=== PATIENT | female | born 1960 | race Caucasian/White ===

== ENCOUNTER 2017-05-22 19:37 | Emergency (ER) | payer OTHER ==
[~2017-05-22] VITALS: Ht 160 cm; Wt 88.9 kg
[2017-05-22 19:47] VITALS: BP 141/80
--- NOTE | 2017-05-22 19:55 | NUR ---
TO LOBBY, AMB, V/S STABLE, A/W FOR BED, ERMD NOTED.
--- NOTE | 2017-05-22 22:18 | NUR ---
SOB, COUGH, RUNNYNOSE, NASAL CONGESTION, FOR A MONTH , SEEN BY PMD LAST 12.17 WITH PRESCRIPTION. PMH HTN, DM BL LUNG SOUNDS CLEAR THROUGH OUT. ABD IS SOFT, ROUND, NONTENDER.
[2017-05-22 22:50] VITALS: BP 139/76
--- NOTE | 2017-05-22 22:51 | NUR ---
Patient discharged with v/s stable. Written and verbal after care instructions given and explained. Patient alert, oriented and verbalized understanding of instructions. Ambulatory with steady gait. All questions addressed prior to discharge. ID band removed. Patient advised to follow up with PMD. Rx of CODEINE PHOSPHATE given. Patient educated on indication of medication including possible reaction and side effects. Opportunity to ask questions provided and answered.
== END 2017-05-22 22:51 | disposition home or self-care (01) ==
LOC: MED 19:37
DX: J06.9 Acute upper respiratory infection, unspecified (principal); R50.9 Fever, unspecified
CPT/HCPCS: 99284

== ENCOUNTER 2019-08-06 12:52 | Emergency (ER) | payer OTHER ==
[~2019-08-06] VITALS: Ht 157.5 cm; Wt 81.6 kg
[2019-08-06 13:26] VITALS: BP 153/71
--- NOTE | 2019-08-06 13:35 | NUR ---
58 Y/O FEMALE C/O RIGHT KNEE PAIN X 1 WEEK, ACHING PAIN 11/26. PT DENIES ANY TRAUMA. PT HAS ARTHRITIS IN KNEE. PT TOOK IBUPROFEN WITH MINIMAL TIEN RELIEF. DENIES N/V/D; SKIN IS PINK/WARM/DRY; AAOX4; UANBLE TO ASSESS AMBULATIN PT IN W/C; PT DENIES ANY FEVER, CP, SOB, OR COUGH AT THIS TIME; VSS; PATIENT POSITIONED FOR COMFORT; HOB ELEVATED; BEDRAILS UP X1; BED DOWN AND WHEELS LOCKED. MEDICAL HX:DIABETES/ARTHRITIS NKA
[2019-08-06] MEDS ORDERED: KETOROLAC 30 MG/ML VIAL IM ONE (13:45)
[2019-08-06] MEDS ORDERED: DEXAMETHASONE 10 MG/ML VIAL IM ONE (13:45)
--- NOTE | 2019-08-06 14:20 | NUR ---
PT SITTING IN POSITION OF COMFORT, BED LOW AND WHEELS LOCKED, 1 SIDERAIL UP,VSS,WILL CONTINUE TO MONITOR.
[2019-08-06 14:57] VITALS: BP 150/72
--- NOTE | 2019-08-06 14:57 | NUR ---
Patient discharged with v/s stable. Written and verbal after care instructions given and explained. Patient alert, oriented and verbalized understanding of instructions. Wheel Chair Assisted with to car. All questions addressed prior to discharge. ID band removed. Patient advised to follow up with PMD. Rx of NAPROXEN given. Patient educated on indication of medication including possible reaction and side effects. Opportunity to ask questions provided and answered.
== END 2019-08-06 14:57 | disposition home or self-care (01) ==
LOC: MED 12:52
DX: M25.561 Pain in right knee (principal); E11.9 Type 2 diabetes mellitus without complications; I10 Essential (primary) hypertension; Z87.39 Personal history of other diseases of the musculoskeletal system and connective tissue
CPT/HCPCS: 96372; 99284; J1100; J1885

== ENCOUNTER 2020-02-26 21:45 | Emergency (ER) | payer OTHER ==
[~2020-02-26] VITALS: Ht 157.5 cm; Wt 84.4 kg
[2020-02-26 21:48] VITALS: BP 185/75
--- NOTE | 2020-02-26 22:10 | NUR ---
RECEIVED IN BED 12 WITH C/O ELEVATED BP, DIZZINESS, AMD NAUSEA. IS AWAKE AMD ALERT. RSPIRATIONS ARE REGULAR AND UNLABORED. DENIES PAIN OR DISCOMFORT AT THIS TIME. ATTACHED TO COMMERCIAL BANKER = NSR. 18G SL ESTABLISHED RIGHT A/C, LABS DRAWN.
--- NOTE | 2020-02-26 22:15 | NUR ---
C/O UNCONTROLLED HTN , +DIZZINESS , +NAUSEA , + MATUTE X 2 DAYS. VSS. DENIES ANY HEAD TRUAMA OR INJURY. A&O X4. HEART SOUNDS S1S2 PRESENT. LUNG SOUNDS CLEAR ALL THROUGHOUT. STEADY GAIT. DENIES ANY BLURRY VISION. PMH: DM , HTN NKA
[2020-02-26 22:28] LABS: BASOPHILS # (AUTO) 0.1 K/uL (0.00-0.22); BASOPHILS % (AUTO) 0.9 % (0.0-2.0); EOSINOPHILS % (AUTO) 0.4 % (0.0-4.0); HEMATOCRIT 33.9 % (36-48); HEMOGLOBIN 11.5 g/dL (12.0-16.0); LYMPHOCYTES # (AUTO) 3.9 K/uL (2.5-16.5); LYMPHOCYTES % (AUTO) 32.2 % (20.5-51.1); MEAN CORPUSCULAR HEMOGLOBIN 28 pg (27-31); MEAN CORPUSCULAR HGB CONC 34 g/dL (33-37); MEAN CORPUSCULAR VOLUME 83.1 fL (80-94); MONOCYTES # (AUTO) 0.8 K/uL (0.8-1.0); MONOCYTES % (AUTO) 6.4 % (1.7-9.3); NEUTROPHILS # (AUTO) 7.3 K/uL (1.8-7.7); NEUTROPHILS % (AUTO) 60.1 % (42.2-75.2); PLATELET COUNT (AUTO) 262 K/uL (140-450); RED BLOOD CELL COUNT(AUTO) 4.08 MIL/uL (4.20-5.40); RED CELL DISTRIBUTION WIDTH 13.5 % (11.6-13.7); WHITE BLOOD COUNT (AUTO) 12.2 K/uL (4.8-10.8)
[2020-02-26 22:39] LABS: ANION GAP 13.8 (8-16); CARBON DIOXIDE 25.8 mmol/L (21-32); CREATININE 0.6 mg/dL (0.6-1.3); POTASSIUM 3.6 mmol/L (3.5-5.1)
[2020-02-26] MEDS ORDERED: NACL 3% 150 ML IV ONE (23:05)
--- NOTE | 2020-02-27 00:05 | NUR ---
PT LAYING IN BED COMFORTABLY. NO DISTRESS NOTED. PT STATES SHE FEELS BETTER. EQUAL CHEST RISE AND FALL.
--- NOTE | 2020-02-27 00:08 | NUR ---
LAB AT BEDSIDE.
--- NOTE | 2020-02-27 00:37 | NUR ---
URINE COLLECTED AND SENT TO LAB
[2020-02-27 00:50] LABS: ANION GAP 14.5 (8-16); CARBON DIOXIDE 25.8 mmol/L (21-32); CREATININE 0.7 mg/dL (0.6-1.3); POTASSIUM 4.3 mmol/L (3.5-5.1)
[2020-02-27 00:59] LABS: APPEARANCE,URINE CLEAR (CLEAR); BILIRUBIN,URINE NEGATIVE (NEGATIVE); BLOOD, URINE NEGATIVE (NEGATIVE); COLOR,URINE YELLOW (YELLOW); LEUKOCYTE ESTERASE ,URINE 1+ (NEGATIVE); NITRITE, URINE NEGATIVE (NEGATIVE); UGLUCOSE NEGATIVE (NEGATIVE)
[2020-02-27 01:25] VITALS: BP 103/64
--- NOTE | 2020-02-27 01:25 | NUR ---
Patient discharged with v/s stable. Written and verbal after care instructions given and explained. Patient alert, oriented and verbalized understanding of instructions. Ambulatory with steady gait. All questions addressed prior to discharge. ID band removed. Patient advised to follow up with PMD. Rx of losartan potassium given. Patient educated on indication of medication including possible reaction and side effects. Opportunity to ask questions provided and answered.
[2020-02-27 01:49] LABS: RBC,URINE 0-5 /HPF (0-5)
== END 2020-02-27 01:25 | disposition home or self-care (01) ==
LOC: MED 21:45
DX: E87.1 Hypo-osmolality and hyponatremia (principal); I10 Essential (primary) hypertension; E11.9 Type 2 diabetes mellitus without complications
CPT/HCPCS: 36415; 80048; 81001; 84300; 84484; 85025; 87086; 93005; 96360; 99291; J3490; 99281; 99284

== ENCOUNTER 2020-03-28 18:55 | Emergency (ER) | payer OTHER ==
[~2020-03-28] VITALS: Ht 157.5 cm; Wt 81.6 kg
[2020-03-28 19:11] VITALS: BP 171/92
--- NOTE | 2020-03-28 19:19 | NUR ---
To ED bed 09
--- NOTE | 2020-03-28 19:19 | NUR ---
pt amb to restroom to provide urine sample
--- NOTE | 2020-03-28 19:26 | NUR ---
ERMD AT BEDSIDE FOR MEDICAL EVALUATION.
[2020-03-28] MEDS ORDERED: NACL 0.9% 500 ML IV ONE (19:30)
[2020-03-28] MEDS ORDERED: ONDANSETRON 4 MG/2 ML VIAL IVP ONE (19:30)
--- NOTE | 2020-03-28 19:30 | NUR ---
59 Y/O FEMALE PRESENTED TO THE ED C/O 08/27 DIFFUSE ABD PAIN, ACCOMPANIED BY NAUSEA, BLOATING, AND CRAMPS, PT DENIES VOMITING, PT DENIES FEVER, PT HAS HYPERACTIVE BOWEL SOUNDS IN ALL 4 QUADRANTS. PT HAS TENDERNESS UPON PALPATION. PT DENIES TAKING MEDICATION FOR PAIN. PT STATES TAKING LOSARTAN. METOPROLOL, METFORMIN, AND ASA. PT LYING DOWN IN BED, BED IS LOCKED AND IN LOWEST POSITION. SIDE RAILS X1, PT CONNECTED TO LOAN CLERK, PT IS NOT IN ANY ACUTE DISTRESS AT THIS TIME. PMH: HTN, DM, AND HYPONATREMIA NKA
--- NOTE | 2020-03-28 20:30 | NUR ---
LAB AT BEDSIDE.
--- NOTE | 2020-03-28 20:40 | NUR ---
LEENA LISA COLLECTED AND HANDED OVER TO LAB WHILE THEY WERE ON THE UNIT.
[2020-03-28 20:50] LABS: BASOPHILS % (AUTO) 0.4 % (0.0-2.0); EOSINOPHILS % (AUTO) 0.5 % (0.0-4.0); HEMATOCRIT 33.6 % (36-48); HEMOGLOBIN 11.2 g/dL (12.0-16.0); LYMPHOCYTES # (AUTO) 2.4 K/uL (2.5-16.5); LYMPHOCYTES % (AUTO) 23.6 % (20.5-51.1); MEAN CORPUSCULAR HEMOGLOBIN 28 pg (27-31); MEAN CORPUSCULAR HGB CONC 33 g/dL (33-37); MEAN CORPUSCULAR VOLUME 84.7 fL (80-94); MONOCYTES # (AUTO) 0.6 K/uL (0.8-1.0); MONOCYTES % (AUTO) 6.2 % (1.7-9.3); NEUTROPHILS % (AUTO) 69.3 % (42.2-75.2); PLATELET COUNT (AUTO) 224 K/uL (140-450); RED BLOOD CELL COUNT(AUTO) 3.97 MIL/uL (4.20-5.40); RED CELL DISTRIBUTION WIDTH 13.7 % (11.6-13.7); WHITE BLOOD COUNT (AUTO) 10.1 K/uL (4.8-10.8)
--- NOTE | 2020-03-28 21:00 | NUR ---
PROVIDED PT WITH A WARMED BLANKET, PT STATED THAT SHE NO LONGER HAS ANY NAUSEA
[2020-03-28 21:04] LABS: URIC ACID 3.5 mg/dL (2.6-7.2)
[2020-03-28 21:13] LABS: APPEARANCE,URINE CLEAR (CLEAR); BILIRUBIN,URINE NEGATIVE (NEGATIVE); BLOOD, URINE NEGATIVE (NEGATIVE); COLOR,URINE ORANGE (YELLOW); LEUKOCYTE ESTERASE ,URINE 1+ (NEGATIVE); NITRITE, URINE NEGATIVE (NEGATIVE); PH,URINE 6.5 (5.0-9.0); UGLUCOSE NEGATIVE (NEGATIVE)
[2020-03-28 21:14] LABS: ALBUMIN 3.3 g/dL (3.4-5.0); ANION GAP 15.1 (8-16); CARBON DIOXIDE 25.9 mmol/L (21-32); CREATININE 0.7 mg/dL (0.6-1.3); FREE T4 (FREE THYROXINE) 1.05 ng/dL (0.76-1.46); MAGNESIUM 1.7 mg/dL (1.8-2.4); PHOSPHORUS 3.5 mg/dL (2.5-4.9); THYROID STIMULATING HORMONE 1.92 uIU/mL (0.34-3.74); TOTAL BILIRUBIN 0.2 mg/dL (0.0-1.0)
[2020-03-28 21:19] LABS: RBC,URINE 0-5 /HPF (0-5)
[2020-03-28 21:41] VITALS: BP 138/58
[2020-03-29 20:53] LABS: CREATININE,URINE RANDOM 67 mg/dL (30-125)
[2020-03-29 20:54] LABS: URINE SODIUM, RANDOM 84 mmol/l (40-220)
[2020-03-30 15:06] LABS: URINE UREA NITROGEN RANDOM 437 mg/dL (Not Estab.)
== END 2020-03-28 21:41 | disposition home or self-care (01) ==
LOC: MED 18:55
DX: R10.84 Generalized abdominal pain (principal); E87.1 Hypo-osmolality and hyponatremia; I10 Essential (primary) hypertension; E11.9 Type 2 diabetes mellitus without complications; R11.2 Nausea with vomiting, unspecified
CPT/HCPCS: 36415; 80053; 81001; 82533; 82570; 83690; 83735; 83935; 84100; 84300; 84439; 84443; 84550; 85025; 87086; 87426; 96361; 96374; 99283; J2405; J7030

== ENCOUNTER 2020-05-26 13:58 | Emergency (ER) | payer OTHER ==
[~2020-05-26] VITALS: Ht 170.2 cm; Wt 64.4 kg
[2020-05-26 14:04] VITALS: BP 136/71
[2020-05-26] MEDS ORDERED: ONDANSETRON 4 MG/2 ML VIAL IVP ONE (14:30)
[2020-05-26] MEDS ORDERED: NACL 0.9% 1,000 ML IV ONE ×2 (14:30→15:30)
[2020-05-26] MEDS ORDERED: SCOPOLAMINE 1.5 MG/72 HR PATCH TD SCH (14:30)
[2020-05-26 15:19] LABS: BASOPHILS # (AUTO) 0.1 K/uL (0.00-0.22); BASOPHILS % (AUTO) 0.7 % (0.0-2.0); EOSINOPHILS # (AUTO) 0.1 K/uL (0-0.4); HEMATOCRIT 37.9 % (36-48); HEMOGLOBIN 12.6 g/dL (12.0-16.0); LYMPHOCYTES # (AUTO) 2.3 K/uL (2.5-16.5); LYMPHOCYTES % (AUTO) 24.7 % (20.5-51.1); MEAN CORPUSCULAR HEMOGLOBIN 28 pg (27-31); MEAN CORPUSCULAR HGB CONC 33 g/dL (33-37); MEAN CORPUSCULAR VOLUME 84.2 fL (80-94); MONOCYTES # (AUTO) 0.6 K/uL (0.8-1.0); NEUTROPHILS # (AUTO) 6.1 K/uL (1.8-7.7); NEUTROPHILS % (AUTO) 66.6 % (42.2-75.2); PLATELET COUNT (AUTO) 249 K/uL (140-450); RED CELL DISTRIBUTION WIDTH 13.9 % (11.6-13.7); WHITE BLOOD COUNT (AUTO) 9.1 K/uL (4.8-10.8)
[2020-05-26 15:36] LABS: PROTHROMBIN TIME 10.4 secs (10.8-13.4)
[2020-05-26 15:49] LABS: ANION GAP 9.7 (8-16); CARBON DIOXIDE 29.7 mmol/L (21-32); CREATININE 0.7 mg/dL (0.6-1.3); POTASSIUM 4.4 mmol/L (3.5-5.1); TOTAL BILIRUBIN 0.3 mg/dL (0.0-1.0)
[2020-05-26] MEDS ORDERED: ONDANSETRON 4 MG/2 ML VIAL ONE (16:11)
--- NOTE | 2020-05-26 17:22 | NUR ---
C/O DIZZINESS/ WEAKNESS, VOMITING, INSOMNIA X2 DAYS. PT STATES SHE WAS HOSPITALIZED IN THE PAST FOR HYPONATREMIA. NO CHEST PAIN/ NO SOB/ NO COUGH. PMH: HTN NKDA
[2020-05-26 17:23] VITALS: BP 136/71
--- NOTE | 2020-05-26 17:23 | NUR ---
Patient discharged with v/s stable. Written and verbal after care instructions given and explained. Patient alert, oriented and verbalized understanding of instructions. Ambulatory with to car. All questions addressed prior to discharge. ID band removed. Patient advised to follow up with PMD. Rx of MECLIZINE, ZOFRAN given. Patient educated on indication of medication including possible reaction and side effects. Opportunity to ask questions provided and answered.
== END 2020-05-26 17:23 | disposition home or self-care (01) ==
LOC: MED 13:58
DX: E87.1 Hypo-osmolality and hyponatremia (principal); E11.649 Type 2 diabetes mellitus with hypoglycemia without coma; I10 Essential (primary) hypertension; E78.00 Pure hypercholesterolemia, unspecified
CPT/HCPCS: 36415; 71045; 80053; 83880; 84484; 85025; 85610; 85730; 93005; 96361; 96374; 99285; J2405; J7030

== ENCOUNTER 2020-10-24 11:52 | Emergency (ER) | payer OTHER ==
[~2020-10-24] VITALS: Ht 157.5 cm; Wt 83.9 kg
[2020-10-24 11:53] VITALS: BP 152/83
--- NOTE | 2020-10-24 12:00 | NUR ---
PT AMBULATED TO BED 12.
--- NOTE | 2020-10-24 12:15 | NUR ---
Puma culver in [facility] - 10/24/20 at 1218 [facility] Soares is evaluating patient at bedside.
--- NOTE | 2020-10-24 12:15 | NUR ---
59 y/o F brought in by with c/c sore throat, fever, nonproductive cough, headache, generalized body pains x 10 days. Patient reports sore throat 8/10, burning/intermittent, non-radiating that worsens when coughing/eating. Patient states she was prescribed Amoxicillin 500mg from her PCP; completed 7 day treatment and symptoms have not improved. Patient states Tylenol 650mg @ 11AM without pain relief. States 2 doses Covid vaccinations, Moderna completed in 08/2020. Patient also reports flucuating fever that ranges from 99* to 101*. Pt denies runny nose, chest pain, diarrhea, vomiting. Bed locked in lowest position, side rails x 1, call light in reach. at bedside with patient. PMH: dm, htn, hld Meds: metformin, amlodipine, atorvastatin, metoprolol, aspirin NKA
[2020-10-24] MEDS ORDERED: KETOROLAC 30 MG/ML VIAL IM ONE (13:00)
[2020-10-24] MEDS ORDERED: KETOROLAC 30 MG/ML VIAL ONE (13:00)
[2020-10-24] MEDS ORDERED: NAPR-54 PO (13:02)
[2020-10-24] MEDS ORDERED: PHEN177S30 PO (13:02)
[2020-10-24] MEDS ORDERED: PENI500T20 PO (13:02)
--- NOTE | 2020-10-24 13:10 | NUR ---
Patient reports minor relief from pain after Toradol 30mg IM.
[2020-10-24 13:13] VITALS: BP 152/83
--- NOTE | 2020-10-24 13:13 | NUR ---
Patient discharged with v/s stable. Written and verbal after care instructions given and explained. Patient alert, oriented and verbalized understanding of instructions. Ambulatory with steady gait. All questions addressed prior to discharge. ID band removed. Patient advised to follow up with PMD. Rx of Naproxen, Penicillin V Potassium, phenol (Cloraseptic) given. Patient educated on indication of medication including possible reaction and side effects. Opportunity to ask questions provided and answered.
== END 2020-10-24 13:13 | disposition home or self-care (01) ==
LOC: MED 11:52
DX: J06.9 Acute upper respiratory infection, unspecified (principal); E11.9 Type 2 diabetes mellitus without complications; I10 Essential (primary) hypertension; Z79.899 Other long term (current) drug therapy
CPT/HCPCS: 96372; 99283; J1885

== ENCOUNTER 2020-11-01 19:43 | Emergency (ER) | payer OTHER ==
[~2020-11-01] VITALS: Ht 157.5 cm; Wt 83.5 kg
[~2020-11-01 19:43] MED LIST: NAPR-54 PO; PENI500T20 PO; PHEN177S30 PO
[2020-11-01 19:46] VITALS: BP 161/81
--- NOTE | 2020-11-01 20:11 | NUR ---
PT BIB SELF FOR C/O SORE THROAT AND FEVER X 1 WEEK. PT REPORTS SHE WAS SEEN HERE 1 WEEK AGO FOR FEVER AND SORE THROAT. SHE WAS GIVEN PAIN MEDICATION AND ABX, HOWEVER THEY HAVE NOT PROVIDED RELIEF. PT STATES SHE COMPLETE HER RX PENICILLIN. PT DENIES SOB, CP, N/V/D AT THIS TIME. PT ALSO REPORTS SHE SAW HER PCP 2 WEEKS AGO WHO ALSO PRESCRIBED HER ABX WITHOUT RELIEF, WHICH IS WHY SHE CAME HERE LAST WEEK. PT REPORTS SHE WAS VACCINATED FOR COVID-19, AND SHE TESTED NEGATIVE LAST WEEK WELL. MED HX: DM, HTN, ELEVATED CHOLESTEROL, ARTHRITIS, VIT. D DEFICIENCY ALLERGIES: NKA
--- NOTE | 2020-11-01 20:32 | NUR ---
ERMD AT BEDSIDE PERFORMING ASSESSMENT.
--- NOTE | 2020-11-01 21:12 | NUR ---
PT TAKEN TO RAD VIA W/C
--- NOTE | 2020-11-01 21:16 | NUR ---
PT RETURNED FROM RAD VIA W/C
[2020-11-01] MEDS ORDERED: HYDROcodone/APAP 5/325 MG 1 TAB TAB PO ONE (22:40)
[2020-11-01] MEDS ORDERED: ACET-8386 PO (22:50)
[2020-11-01] MEDS ORDERED: [UNRECOGNIZED DRUG - CODE] MM (22:50)
[2020-11-01 23:05] VITALS: BP 148/78
--- NOTE | 2020-11-01 23:05 | NUR ---
Patient discharged with v/s stable. Written and verbal after care instructions given and explained. Patient alert, oriented and verbalized understanding of instructions. Ambulatory with steady gait. All questions addressed prior to discharge. ID band removed. Patient advised to follow up with PMD. Rx of NORCO AND CEPACOL SORE THROAT LOZENGE given. Patient educated on indication of medication including possible reaction and side effects. Opportunity to ask questions provided and answered.
== END 2020-11-01 23:05 | disposition home or self-care (01) ==
LOC: MED 19:43
DX: J02.9 Acute pharyngitis, unspecified (principal); E11.9 Type 2 diabetes mellitus without complications; I10 Essential (primary) hypertension; Z79.899 Other long term (current) drug therapy
CPT/HCPCS: 70360; 99283

== ENCOUNTER 2020-12-09 12:42 | Emergency (ER) | payer OTHER ==
[~2020-12-09] VITALS: Ht 157.5 cm; Wt 81.6 kg
[~2020-12-09 12:42] MED LIST changes: +ACET-8386 PO; +[UNRECOGNIZED DRUG - CODE] MM
--- NOTE | 2020-12-09 12:44 | NUR ---
PT W/C ASSISTED TO ER BED 7 FOR BEDSIDE TRIAGE.
[2020-12-09 12:48] VITALS: BP 158/73
[2020-12-09] MEDS ORDERED: KETOROLAC 30 MG/ML VIAL IM ONE (13:00)
--- NOTE | 2020-12-09 13:29 | NUR ---
59/F presents to ED with c/o left ankle pain. Patient states she was on a walk yesterday and accidentally twisted her ankle. Patient complains of 7/10 sharp pain that worsens when she attempts to ambulate or bear weight. Patient states the pain is nonradiating, reports taking Tylenol at home with mild relief. Swelling noted to left ankle, patient wheel chair assisted to bed. Denies fever, chills, head injury, LOC, nausea, vomiting, calf erythema or swelling.
--- NOTE | 2020-12-09 13:54 | NUR ---
KEITH Soares is evaluating the patient at bedside.
[2020-12-09] MEDS ORDERED: ACET-8386 PO (13:57)
[2020-12-09] MEDS ORDERED: IBUP-2213 PO (13:57)
[2020-12-09 14:51] VITALS: BP 158/73
--- NOTE | 2020-12-09 14:51 | NUR ---
Patient discharged with v/s stable. Written and verbal after care instructions given ANKLE FRACTURE and explained. Patient alert, oriented and verbalized understanding of instructions. Wheel Chair Assisted with to car. All questions addressed prior to discharge. ID band removed. Patient advised to follow up with PMD. Rx of NORCO 5MG-325MG PO Q6H PRN PAIN, AND MOTRIN 600MG PO Q4-6H PRN PAIN given. Patient educated on indication of medication including possible reaction and side effects. Opportunity to ask questions provided and answered.
== END 2020-12-09 14:51 | disposition home or self-care (01) ==
LOC: MED 12:42
DX: S99.911A Unspecified injury of right ankle, initial encounter (principal); E11.9 Type 2 diabetes mellitus without complications; I10 Essential (primary) hypertension; Z79.899 Other long term (current) drug therapy; W50.2XXA Accidental twist by another person, initial encounter; Y93.89 Activity, other specified; Y92.89 Other specified places as the place of occurrence of the external cause; Y99.8 Other external cause status
CPT/HCPCS: 29515; 73610; 96372; 99283; J1885

== ENCOUNTER 2021-08-22 21:13 | Emergency (ER) | payer OTHER ==
[~2021-08-22] VITALS: Ht 157.5 cm; Wt 83.0 kg
[~2021-08-22 21:13] MED LIST changes: +IBUP-2213 PO
[2021-08-22 21:17] VITALS: BP 173/67
[2021-08-22 22:09] LABS: BASOPHILS # (AUTO) 0.1 K/uL (0.00-0.22); BASOPHILS % (AUTO) 1.1 % (0.0-2.0); EOSINOPHILS # (AUTO) 0.1 K/uL (0-0.4); EOSINOPHILS % (AUTO) 0.9 % (0.0-4.0); HEMATOCRIT 33.7 % (36-48); HEMOGLOBIN 11.2 g/dL (12.0-16.0); LYMPHOCYTES # (AUTO) 2.8 K/uL (2.5-16.5); LYMPHOCYTES % (AUTO) 35.7 % (20.5-51.1); MEAN CORPUSCULAR HEMOGLOBIN 27 pg (27-31); MEAN CORPUSCULAR HGB CONC 33 g/dL (33-37); MEAN CORPUSCULAR VOLUME 82.3 fL (80-94); MONOCYTES # (AUTO) 0.5 K/uL (0.8-1.0); MONOCYTES % (AUTO) 6.6 % (1.7-9.3); NEUTROPHILS # (AUTO) 4.4 K/uL (1.8-7.7); NEUTROPHILS % (AUTO) 55.7 % (42.2-75.2); PLATELET COUNT (AUTO) 216 K/uL (140-450); RED BLOOD CELL COUNT(AUTO) 4.09 MIL/uL (4.20-5.40); RED CELL DISTRIBUTION WIDTH 14.3 % (11.6-13.7); WHITE BLOOD COUNT (AUTO) 7.9 K/uL (4.8-10.8)
[2021-08-22 22:25] LABS: ALBUMIN 3.6 g/dL (3.4-5.0); ANION GAP 12.3 (8-16); CREATININE 0.7 mg/dL (0.6-1.3); POTASSIUM 4.3 mmol/L (3.5-5.1); TOTAL BILIRUBIN 0.3 mg/dL (0.0-1.0)
[2021-08-22] MEDS ORDERED: NACL 0.9% 1,000 ML IV ONE (22:40)
--- NOTE | 2021-08-22 23:19 | NUR ---
Note undone in EDM - 08/23/21 at 0122 by [facility] ABDOMINAL GENERAL 10/27 ACHE NO RAD CONSTAT, GAS AND BLOATING, + DIARRHEA X4 DAYS. NO PAIN AT THIS TIME. WORSE AT NIGHT. NO FEVER CHILLS, N/V, CHEST PAIN OR SOB. TENDER TO TOUCH. NO BLOOD. TOOK X2 FLAGYL LAST DOSE AT 1900. ALLERGIES: DENIES HX: DIABETES, HTN
--- NOTE | 2021-08-22 23:19 | NUR ---
60 YO/F BIB SELF W C/O GENERALIZED ABDOMINAL PAIN 6/10 ACHE LIKE, NON-RAD CONSTANT, +GAS AND BLOATING, + DIARRHEA X4 DAYS. NO PAIN AT THIS TIME. WORSE AT NIGHT. PT DENIES ANY FEVER, CHILLS, N/V, CHEST PAIN OR SOB. PT DENIES BLOOD IN BOWEL. ABDOMEN TENDER TO TOUCH. PT TOOK X2 FLAGYL LAST DOSE AT 1900. PT SITTING IN BED LOCKED IN LOWEST POSITION W X1 SIDERAIL UP. BREATHING EVEN AND UNLABORED. WILL CONTINUE TO MONITOR. ALLERGIES: DENIES HX: DIABETES, HTN
[2021-08-22 23:48] LABS: APPEARANCE,URINE CLEAR (CLEAR); BILIRUBIN,URINE NEGATIVE (NEGATIVE); BLOOD, URINE NEGATIVE (NEGATIVE); COLOR,URINE YELLOW (YELLOW); LEUKOCYTE ESTERASE ,URINE 1+ (NEGATIVE); NITRITE, URINE NEGATIVE (NEGATIVE); UGLUCOSE NEGATIVE (NEGATIVE)
[2021-08-22 23:58] LABS: RBC,URINE 0-5 /HPF (0-5); WBC,URINE 20-60 /HPF (0-5)
--- NOTE | 2021-08-23 00:38 | NUR ---
patient ambulated to the bathroom with a steady gait
[2021-08-23] MEDS ORDERED: cefTRIAXone 250 MG in LIDOCAINE MPF 1% 0.9 ML IM ONE (01:15)
[2021-08-23] MEDS ORDERED: cefTRIAXone 250 MG VIAL ONE (01:16)
[2021-08-23] MEDS ORDERED: LIDOCAINE MPF 1% 5 ML ONE (01:16)
[2021-08-23] MEDS ORDERED: CEPH-588 PO (01:19)
[2021-08-23 01:30] VITALS: BP 155/70
== END 2021-08-23 01:30 | disposition home or self-care (01) ==
LOC: MED 21:13
DX: N39.0 Urinary tract infection, site not specified (principal); R19.7 Diarrhea, unspecified; R42 Dizziness and giddiness; E11.9 Type 2 diabetes mellitus without complications; I10 Essential (primary) hypertension; Z79.2 Long term (current) use of antibiotics; Z79.1 Long term (current) use of non-steroidal anti-inflammatories (NSAID); Z79.891 Long term (current) use of opiate analgesic; Z79.899 Other long term (current) drug therapy
CPT/HCPCS: 36415; 80053; 81001; 83690; 85025; 87086; 93005; 96360; 96372; 99284; J0696; J2001; J7030

== ENCOUNTER 2021-10-05 12:18 | Emergency (ER) | payer OTHER ==
[~2021-10-05] VITALS: Ht 157.5 cm; Wt 84.6 kg
[~2021-10-05 12:18] MED LIST changes: +CEPH-588 PO
[2021-10-05 12:40] VITALS: BP 138/73
--- NOTE | 2021-10-05 12:47 | NUR ---
PT AMB TO BED 10.
[2021-10-05] MEDS ORDERED: ONDANSETRON 4 MG ODT PO ONE (13:15)
[2021-10-05] MEDS ORDERED: DICYCLOMINE HCL LIQUID 20 MG, ALUMINUM HYD/MAG/SIMETHICONE 30 ML, LIDOCAINE VISCOUS 2% ... PO ONE ×3 (13:15)
--- NOTE | 2021-10-05 13:16 | NUR ---
ATTEMPTED TO PERFORM AN EKG AND PT STATED SHE WOULD PREFER A FEMALE. RICCO LO NOTIFIED.
--- NOTE | 2021-10-05 13:16 | NUR ---
60 y/o female, c/o lower left quadrant abdominal pain and diarrhea that started yesterday. skin is pink/warm/dry. a&o x4 with even and steady gait. lungs clear bl, heart rate even and regular. pt denies dysuria, hematuria, urinary frequency or retention, or anyone sick in the household with the same symptoms. pt denies any fever, cp, sob, or cough at this time. pt states pain is 5/10 at this time. patient positioned for comfort. hob elevated. bed down. ermd made aware of pt. pmh: htn, dm2 nka med: metformin, losartan
[2021-10-05] MEDS ORDERED: DICYCLOMINE HCL LIQUID 10 MG/5 ML UDC ONE (13:18)
[2021-10-05] MEDS ORDERED: ALUMINUM HYD/MAG/SIMETHICONE 30 ML UDC ONE (13:18)
[2021-10-05 13:46] LABS: BASOPHILS # (AUTO) 0.1 K/uL (0.00-0.22); BASOPHILS % (AUTO) 1.4 % (0.0-2.0); EOSINOPHILS # (AUTO) 0.1 K/uL (0-0.4); EOSINOPHILS % (AUTO) 0.8 % (0.0-4.0); HEMATOCRIT 36.8 % (36-48); HEMOGLOBIN 12.3 g/dL (12.0-16.0); LYMPHOCYTES # (AUTO) 2.7 K/uL (2.5-16.5); LYMPHOCYTES % (AUTO) 31.8 % (20.5-51.1); MEAN CORPUSCULAR HEMOGLOBIN 28 pg (27-31); MEAN CORPUSCULAR HGB CONC 33 g/dL (33-37); MEAN CORPUSCULAR VOLUME 82.5 fL (80-94); MONOCYTES # (AUTO) 0.6 K/uL (0.8-1.0); MONOCYTES % (AUTO) 6.9 % (1.7-9.3); NEUTROPHILS # (AUTO) 5.1 K/uL (1.8-7.7); NEUTROPHILS % (AUTO) 59.1 % (42.2-75.2); PLATELET COUNT (AUTO) 250 K/uL (140-450); RED BLOOD CELL COUNT(AUTO) 4.46 MIL/uL (4.20-5.40); RED CELL DISTRIBUTION WIDTH 14.2 % (11.6-13.7); WHITE BLOOD COUNT (AUTO) 8.6 K/uL (4.8-10.8)
[2021-10-05 14:02] LABS: ALBUMIN 4.1 g/dL (3.4-5.0); ANION GAP 11.1 (8-16); ASPARTATE AMINOTRANSFERASE 19 U/L (15-37); CHLORIDE 96 mmol/L (98-107); CREATININE 0.6 mg/dL (0.6-1.3); GFR ARICAN-AMERICAN 132 mL/min (>90); GLUCOSE 162 mg/dL (74-106); LIPASE 64 U/L (73-393); POTASSIUM 4.1 mmol/L (3.5-5.1); SODIUM SERUM 131 mmol/L (136-145); TOTAL BILIRUBIN 0.3 mg/dL (0.0-1.0); UREA NITROGEN, BLOOD 8 mg/dL (7-18)
[2021-10-05] MEDS ORDERED: BISM262T28 PO (14:06)
[2021-10-05] MEDS ORDERED: FAMO-90 PO (14:06)
[2021-10-05] MEDS ORDERED: ALUM355S5 PO (14:06)
[2021-10-05] MEDS ORDERED: ONDA-188 PO (14:06)
[2021-10-05 16:18] LABS: BILIRUBIN,URINE NEGATIVE (NEGATIVE); BLOOD, URINE NEGATIVE (NEGATIVE); LEUKOCYTE ESTERASE ,URINE 1+ (NEGATIVE); NITRITE, URINE NEGATIVE (NEGATIVE); PH,URINE 5.5 (5.0-9.0); UGLUCOSE NEGATIVE (NEGATIVE)
[2021-10-05 16:22] LABS: APPEARANCE,URINE HAZY (CLEAR)
[2021-10-05 16:23] LABS: COLOR,URINE STRAW (YELLOW)
[2021-10-05 16:35] LABS: RBC,URINE NONE SEEN /HPF (0-5)
[2021-10-05 16:59] VITALS: BP 138/73
--- NOTE | 2021-10-05 17:00 | NUR ---
Patient discharged with v/s stable. Written and verbal after care instructions given and explained. Patient alert, oriented and verbalized understanding of instructions. Ambulatory with spouse to car. All questions addressed prior to discharge. ID band removed. Patient advised to follow up with PMD. Rx of zofran, mag hydrox, bismuth subsalicylate, famotidine (sent) given. Patient educated on indication of medication including possible reaction and side effects. Opportunity to ask questions provided and answered. copy of labs given
== END 2021-10-05 16:59 | disposition home or self-care (01) ==
LOC: MED 12:18
DX: K52.9 Noninfective gastroenteritis and colitis, unspecified (principal); R42 Dizziness and giddiness; I10 Essential (primary) hypertension; E11.9 Type 2 diabetes mellitus without complications; Z79.2 Long term (current) use of antibiotics; Z79.1 Long term (current) use of non-steroidal anti-inflammatories (NSAID); Z79.899 Other long term (current) drug therapy; Z79.891 Long term (current) use of opiate analgesic
CPT/HCPCS: 36415; 80053; 81001; 83690; 84484; 85025; 87086; 93005; 99284; Q0162

== ENCOUNTER 2021-12-21 11:02 | Emergency (ER) | payer OTHER ==
[~2021-12-21] VITALS: Ht 157.5 cm; Wt 86.0 kg
[~2021-12-21 11:02] MED LIST changes: +ALUM355S5 PO; +BISM262T28 PO; +FAMO-90 PO; +ONDA-188 PO
--- NOTE | 2021-12-21 12:16 | NUR ---
PT AMB TO BED 11
--- NOTE | 2021-12-21 12:19 | NUR ---
walked in c/o right breast pain that radiates down to the entire right side. states intermittent 9/10 sharp pain. denies any pain or deformity. denies injury or swelling or redness or drainage. denies fever. vitals stable. aaox4, ambulatory. gowned
--- NOTE | 2021-12-21 12:51 | NUR ---
Female Garment Form Assembler accompanied female patient for BREAST Exam.
[2021-12-21 13:19] LABS: BASOPHILS % (AUTO) 0.4 % (0.0-2.0); EOSINOPHILS # (AUTO) 0.1 K/uL (0-0.4); HEMATOCRIT 36.5 % (36-48); LYMPHOCYTES # (AUTO) 1.9 K/uL (2.5-16.5); LYMPHOCYTES % (AUTO) 25.4 % (20.5-51.1); MEAN CORPUSCULAR HEMOGLOBIN 27 pg (27-31); MEAN CORPUSCULAR HGB CONC 33 g/dL (33-37); MEAN CORPUSCULAR VOLUME 82.4 fL (80-94); MONOCYTES # (AUTO) 0.5 K/uL (0.8-1.0); MONOCYTES % (AUTO) 6.7 % (1.7-9.3); NEUTROPHILS # (AUTO) 5.1 K/uL (1.8-7.7); NEUTROPHILS % (AUTO) 66.5 % (42.2-75.2); PLATELET COUNT (AUTO) 247 K/uL (140-450); RED BLOOD CELL COUNT(AUTO) 4.43 MIL/uL (4.20-5.40); RED CELL DISTRIBUTION WIDTH 14.3 % (11.6-13.7); WHITE BLOOD COUNT (AUTO) 7.6 K/uL (4.8-10.8)
[2021-12-21 13:45] LABS: ANION GAP 14.3 (8-16); CARBON DIOXIDE 25.9 mmol/L (21-32); CREATININE 0.7 mg/dL (0.6-1.3); POTASSIUM 4.2 mmol/L (3.5-5.1)
[2021-12-21] MEDS ORDERED: NACL 0.9% 1,000 ML IV ONE (13:50)
[2021-12-21 13:54] VITALS: BP 141/53
--- NOTE | 2021-12-21 15:48 | NUR ---
Patient discharged with v/s stable. Written and verbal after care instructions given and explained. Patient verbalized understanding. Ambulatory with steady gait. All questions addressed prior to discharge. Advised to follow up with PMD.
== END 2021-12-21 15:48 | disposition home or self-care (01) ==
LOC: MED 11:02
DX: N64.4 Mastodynia (principal); E87.1 Hypo-osmolality and hyponatremia; E11.9 Type 2 diabetes mellitus without complications; I10 Essential (primary) hypertension; Z79.899 Other long term (current) drug therapy
CPT/HCPCS: 36415; 80048; 84484; 85025; 93005; 96360; 96361; 99284; J7030

== ENCOUNTER 2022-05-20 21:02 | Observation (INO) | payer OTHER ==
[~2022-05-20] VITALS: Ht 157.5 cm; Wt 83.5 kg
[~2022-05-20 21:02] MED LIST changes: -ACET-8386 PO; +ACET-8905 PO
[2022-05-20 21:08] VITALS: BP 173/76
--- NOTE | 2022-05-20 21:15 | NUR ---
TO BED 5 FROM TRIAGE
--- NOTE | 2022-05-20 21:43 | NUR ---
X-Ray at bedside.
[2022-05-20 21:45] LABS: BASOPHILS # (AUTO) 0.1 K/uL (0.00-0.22); BASOPHILS % (AUTO) 0.7 % (0.0-2.0); EOSINOPHILS # (AUTO) 0.1 K/uL (0-0.4); EOSINOPHILS % (AUTO) 1.5 % (0.0-4.0); HEMATOCRIT 35.6 % (36-48); HEMOGLOBIN 11.9 g/dL (12.0-16.0); LYMPHOCYTES # (AUTO) 3.8 K/uL (2.5-16.5); LYMPHOCYTES % (AUTO) 42.8 % (20.5-51.1); MEAN CORPUSCULAR HEMOGLOBIN 28 pg (27-31); MEAN CORPUSCULAR HGB CONC 33 g/dL (33-37); MEAN CORPUSCULAR VOLUME 82.5 fL (80-94); MONOCYTES # (AUTO) 0.7 K/uL (0.8-1.0); MONOCYTES % (AUTO) 7.5 % (1.7-9.3); NEUTROPHILS # (AUTO) 4.2 K/uL (1.8-7.7); NEUTROPHILS % (AUTO) 47.5 % (42.2-75.2); PLATELET COUNT (AUTO) 238 K/uL (140-450); RED BLOOD CELL COUNT(AUTO) 4.32 MIL/uL (4.20-5.40); RED CELL DISTRIBUTION WIDTH 14.3 % (11.6-13.7); WHITE BLOOD COUNT (AUTO) 8.8 K/uL (4.8-10.8)
[2022-05-20 22:08] LABS: ALBUMIN 3.6 g/dL (3.4-5.0); ANION GAP 12.4 (8-16); CARBON DIOXIDE 29.6 mmol/L (21-32); CREATININE 0.7 mg/dL (0.6-1.3); TOTAL BILIRUBIN 0.2 mg/dL (0.0-1.0)
--- NOTE | 2022-05-20 22:12 | NUR ---
COVID SWAB COLLECTED AND SENT TO LAB
--- NOTE | 2022-05-20 22:25 | NUR ---
61YR OLD FEMALE BIB SELF C/O CP AND DIZZINESS XTODAY. PT STATES PAIN MID STERNAL NON RADIATING PRESSURE/SHARP PAIN 10/27. PT IS A&OX4 . SKIN WARM AND DRY. 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 HOB ELEVATED BED AT LOWEST LEVEL. NKDA HTN DM
[2022-05-20] MEDS ORDERED: MORPHINE SULFATE 2 MG/ML SYR IVP PRN (23:20)
[2022-05-20] MEDS ORDERED: ACETAMINOPHEN 325 MG TAB PO PRN (23:20)
[2022-05-20] MEDS ORDERED: ONDANSETRON 4 MG/2 ML VIAL IVP PRN (23:20)
[2022-05-21] MEDS ORDERED: METF-1139 PO (00:05)
[2022-05-21] MEDS ORDERED: METO25TA14 PO (00:06)
[2022-05-21] MEDS ORDERED: ASPI-1822 PO (00:06)
[2022-05-21] MEDS ORDERED: ACET500P13 PO (00:08)
--- NOTE | 2022-05-21 00:18 | NUR ---
Patient will be admitted to care of DR WALSH. Admited to TELE. Will go to [id number]. Belongings list completed. Report to WILBERTO CHACKO.
[2022-05-21 00:20] VITALS: BP 142/66
--- NOTE | 2022-05-21 00:20 | NUR ---
RECEIVED REPORT FROM ER NURSE OLIVA FOR CONTINUITY OF CARE. PATIENT IS A&O X4. PATIENT IS ON ROOM AIR; BREATHING IS NORMAL WITH SYMMETRICAL RISE AND FALL OF CHEST. IV IS A 20 G RAC; NO FLUIDS RUNNING AT THIS TIME. PATIENT ARRIVED ON UNIT AND WALKED INDEPENDENTLY FROM THE GURNEY TO THE BATHROOM. PATIENT'S VITALS WERE: BP 142/66, HR 79, TEMP 98.9, 02 98, RR 19. BED IS IN LOWEST POSITION, WHEELS LOCKED, CALL LIGHT IN PLACE. WILL CONTINUE TO OBSERVE PATIENT.
[2022-05-21 04:00] VITALS: BP 158/64
--- NOTE | 2022-05-21 04:00 | NUR ---
PATIENT WAS COOPERATIVE DURING ADMISSION AND THEN WENT TO SLEEP. PATIENT WOKE UP AT 0345 AND STATED SHE WAS STARTING TO HAVE A LOT OF CHEST PAIN. PATIENT'S VITALS WERE:BP 158/64, HR 76, TEMP 98.5, O2 100, RR 19. CHECKED PATIENT'S CHART; MORPHINE WAS APPROPRIATE TO ADMINISTER. ADMINISTERED MEDICATION TO PATIENT, PATIENT TOLERATED WELL. PATIENT THEN LAID DOWN TO GO BACK TO SLEEP. WILL CONTINUE TO OBSERVE PATIENT.
[2022-05-21 07:16] LABS: BASOPHILS # (AUTO) 0.1 K/uL (0.00-0.22); BASOPHILS % (AUTO) 0.6 % (0.0-2.0); EOSINOPHILS # (AUTO) 0.1 K/uL (0-0.4); EOSINOPHILS % (AUTO) 0.8 % (0.0-4.0); HEMOGLOBIN 12.7 g/dL (12.0-16.0); LYMPHOCYTES # (AUTO) 2.8 K/uL (2.5-16.5); LYMPHOCYTES % (AUTO) 31.1 % (20.5-51.1); MEAN CORPUSCULAR HEMOGLOBIN 27 pg (27-31); MEAN CORPUSCULAR HGB CONC 33 g/dL (33-37); MONOCYTES # (AUTO) 0.6 K/uL (0.8-1.0); MONOCYTES % (AUTO) 6.3 % (1.7-9.3); NEUTROPHILS # (AUTO) 5.5 K/uL (1.8-7.7); NEUTROPHILS % (AUTO) 61.2 % (42.2-75.2); PLATELET COUNT (AUTO) 253 K/uL (140-450)
--- NOTE | 2022-05-21 07:30 | NUR ---
ENDORSE TO DAY SHIFT NURSE ANTON FOR CONTINUITY OF CARE. PATIENT IS STABLE.
--- NOTE | 2022-05-21 07:30 | NUR ---
RECEIVED PT FROM AGRICULTURAL SCIENTIST NURSE FOR CONTINUITY OF CARE. PT IN BED AWAKE AND ALERT X4. PT ABLE TO VERBALIZE NEEDS. RESPIRATIONS EVEN AND UNLABORED. NO DISTRESS NOTED. CALL LIGHT WITHIN REACH. ALL SAFETY MEASURES IN PLACE.
[2022-05-21 07:37] LABS: ALBUMIN 3.7 g/dL (3.4-5.0); ANION GAP 11.2 (8-16); CARBON DIOXIDE 30.7 mmol/L (21-32); CREATININE 0.6 mg/dL (0.6-1.3); MAGNESIUM 1.8 mg/dL (1.8-2.4); POTASSIUM 3.9 mmol/L (3.5-5.1); TOTAL BILIRUBIN 0.3 mg/dL (0.0-1.0)
[2022-05-21 08:00] VITALS: BP 136/63
[2022-05-21] MEDS ORDERED: ASPIRIN 81 MG TAB.CHEW PO SCH (09:00)
--- NOTE | 2022-05-21 10:03 | NUR ---
PATIENT HAS BEEN SCREENED AND CATEGORIZED LOW NUTRITION RISK. PATIENT WILL BE SEEN WITHIN 7 DAYS OF ADMISSION. 05/20/22-05/27/[address]
--- NOTE | 2022-05-21 11:46 | NUR ---
MAKING ROUNDS. PT IN BED TALKING ON PHONE. CALL LIGHT WITHIN REACH.
[2022-05-21 12:00] VITALS: BP 148/67
[2022-05-21 16:00] VITALS: BP 125/54
[2022-05-21 16:59] VITALS: BP 125/54
--- NOTE | 2022-05-21 17:33 | NUR ---
PT DISCHARGE PACKET REVIEWED AND DISCUSSED. IV AND NAME BAND REMOVED. PT GATHERED ALL BELONGINGS AND AMBULATED TO THE [facility]. AT [facility] WALKED WITH PT OUT OF HOSPITAL. PT IN STABLE CONDITION. DC TO HOME.
== END 2022-05-21 18:02 | disposition home or self-care (01) ==
LOC: MED 21:02 → MTU 23:23
PROVIDERS: ADMIT Hospitalist; ATTEND Hospitalist
DX: R07.89 Other chest pain (principal); Z20.822 Contact with and (suspected) exposure to COVID-19; I10 Essential (primary) hypertension; E11.9 Type 2 diabetes mellitus without complications; E78.5 Hyperlipidemia, unspecified; Z79.899 Other long term (current) drug therapy
CPT/HCPCS: 36415; 71045; 80053; 83735; 83880; 84484; 85025; 87081; 87426; 93005; 93307; 96374; 99285; C8929; G0378; J2270

== ENCOUNTER 2022-06-03 06:17 | Emergency (ER) | payer OTHER ==
[~2022-06-03] VITALS: Ht 157.5 cm; Wt 84.4 kg
[~2022-06-03 06:17] MED LIST changes: +ACET500P13 PO; +ASPI-1822 PO; +METF-1139 PO; +METO25TA14 PO
[2022-06-03 06:24] VITALS: BP 126/52
--- NOTE | 2022-06-03 06:28 | NUR ---
TO LOBBY A/W BED AMBULATORY
[2022-06-03 06:33] VITALS: BP 126/52
[2022-06-03] MEDS ORDERED: KETOROLAC 30 MG/ML VIAL IM ONE (07:00)
[2022-06-03] MEDS ORDERED: LORA10TA19 PO (08:32)
[2022-06-03] MEDS ORDERED: GUAI-976 PO (08:32)
[2022-06-03] MEDS ORDERED: ACET-10509 PO (08:32)
--- NOTE | 2022-06-03 08:43 | NUR ---
Patient discharged with v/s stable. Written and verbal after care instructions ABOUT ACUTE BRONCHITIS given and explained. Patient alert, oriented and verbalized understanding of instructions. Ambulatory with steady gait. All questions addressed prior to discharge. ID band removed. Patient advised to follow up with PMD. Rx of TYLENOL, CLARITIN, GUAIFENESIN-DM 400-20 given. Patient educated on indication of medication including possible reaction and side effects. Opportunity to ask questions provided and answered.
== END 2022-06-03 08:43 | disposition home or self-care (01) ==
LOC: MED 06:17
DX: J20.9 Acute bronchitis, unspecified (principal); Z20.822 Contact with and (suspected) exposure to COVID-19; E11.9 Type 2 diabetes mellitus without complications; I10 Essential (primary) hypertension; Z79.899 Other long term (current) drug therapy; Z79.84 Long term (current) use of oral hypoglycemic drugs; Z79.82 Long term (current) use of aspirin
CPT/HCPCS: 71045; 87426; 87804; 96372; 99284; J1885

== ENCOUNTER 2022-08-23 10:28 | Emergency (ER) | payer OTHER ==
[~2022-08-23] VITALS: Ht 157.5 cm; Wt 84.8 kg
[~2022-08-23 10:28] MED LIST changes: +ACET-10509 PO; +GUAI-976 PO; +LORA10TA19 PO
[2022-08-23 10:32] VITALS: BP 164/73
--- NOTE | 2022-08-23 10:36 | NUR ---
Patient ambulated to bed 6
--- NOTE | 2022-08-23 10:47 | NUR ---
61 y/o female bib self with c/o cough x 1 month. Patient was diagnosed with COVID one month ago. Patient has had a lingering cough since COVID diagnosis. Patient also reports bilateral ear discomfort. Patient denies any drainage or loss of hearing. Medical History: DM, HTN, Arthritis NKDA
--- NOTE | 2022-08-23 12:54 | NUR ---
Dr. Ledezma evaluating patient at bedside.
[2022-08-23] MEDS ORDERED: AMOX-1230 PO (13:04)
[2022-08-23] MEDS ORDERED: PRED20TA5 PO (13:04)
--- NOTE | 2022-08-23 13:35 | NUR ---
Patient discharged with v/s stable. Written and verbal after care instructions ABOUT SINUSITIS given and explained. Patient alert, oriented and verbalized understanding of instructions. Ambulatory with steady gait. All questions addressed prior to discharge. ID band removed. Patient advised to follow up with PMD. Rx of AMOX-CLAV, DELTASONE given. Patient educated on indication of medication including possible reaction and side effects. Opportunity to ask questions provided and answered.
== END 2022-08-23 13:35 | disposition home or self-care (01) ==
LOC: MED 10:28
DX: J20.9 Acute bronchitis, unspecified (principal); J32.9 Chronic sinusitis, unspecified; E11.9 Type 2 diabetes mellitus without complications; I10 Essential (primary) hypertension; Z79.4 Long term (current) use of insulin; Z79.899 Other long term (current) drug therapy
CPT/HCPCS: 99283